=== PATIENT | male | born 1995 | race Caucasian/White ===

== ENCOUNTER 2018-07-19 14:48 | Emergency (ER) | payer SELFPAY ==
--- NOTE | 2018-07-19 15:15 | ED.PDOC ---
History of Present Illness - General Chief Complaint: GI Problem Stated Complaint: n/v, burning Time Seen by Provider: 07/19/18 15:11 Information Source: patient, family Exam Limitations: no limitations - History of Present Illness Initial Comments: FEVER, VOMITING, MUSCLE ACHES, MALAISE, COUGH AND SORE THROAT, ONSET YESTERDAY. Abdominal Pain Onset Location: epigastric Pain Radiation: no radiation Quality: moderate Timing/Duration: days - TWO DAYS Improving Factors: nothing Worsening Factors: nothing Associated Symptoms: fever/chills, headache Review of Systems - Review of Systems Constitutional: States: no symptoms reported, fever, malaise, weakness EENTM: States: throat pain Respiratory: States: cough, short of breath Cardiology: States: no symptoms reported Gastrointestinal/Abdominal: States: abdominal pain, nausea, vomiting Musculoskeletal: States: muscle pain Skin: States: no symptoms reported Neurological: States: no symptoms reported Endocrine: States: no symptoms reported Hematologic/Lymphatic: States: no symptoms reported Past Medical History (General) - Patient Medical History Hx Stroke: No Hx Congestive Heart Failure: No Hx Pacemaker: No Hx Diabetes: No Surgical History: other - Vaccination History Hx Tetanus, Diphtheria Vaccination: Yes Hx Influenza Vaccination: No Hx Pneumococcal Vaccination: No Family Medical History - Family History Mother Family History: No Known Physical Exam - Physical Exam General Appearance: Alert, No apparent distress, Well Developed, Well Groomed, Well Hydrated, Well Nourished Eyes, Ears, Nose, Throat Exam: PERRL/EOMI, normal ENT inspection, pharynx normal Neck: non-tender, full range of motion, supple Respiratory: chest non-tender, lungs clear, normal breath sounds, no respiratory distress, no accessory muscle use Cardiovascular/Chest: normal peripheral pulses, regular rate, rhythm, no edema, no gallop, no JVD, no murmur Gastrointestinal/Abdominal: normal bowel sounds, non tender, soft, no organomegaly, no pulsatile mass Extremity: normal range of motion, non-tender, normal inspection 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 tested, oriented x 3 Progress - Results/Orders Results/Orders: Laboratory Results - last 24 hr 07/19/18 07/19/18 07/19/18 15:30 15:30 15:36 WBC 12.9 H RBC 5.68 Hgb 16.7 Hct 50.4 MCV 88.9 MCH 29.4 MCHC 33.1 RDW 13.3 Plt Count 327 MPV 7.5 Absolute Neuts (auto) 11.10 H Absolute Lymphs (auto) 0.70 L Absolute Monos (auto) 0.80 Absolute Eos (auto) 0.30 Absolute Basos (auto) 0.00 Neutrophils % 85.8 H Lymphocytes % 5.8 L Monocytes % 6.1 Eosinophils % 2.1 Basophils % 0.2 Sodium 137 Potassium 4.3 Chloride 101 Carbon Dioxide 29 Anion Gap 11.3 L BUN 11 Creatinine 0.92 BUN/Creatinine Ratio 12.0 Random Glucose 102 Serum Osmolality 273.4 L Calcium 9.1 Total Bilirubin 0.9 AST 32 ALT 73 H Alkaline Phosphatase 78 Serum Total Protein 7.7 Albumin 4.1 Globulin 3.6 H Albumin/Globulin Ratio 1.1 Urine Color Yellow Urine Appearance Clear Urine pH 8.5 H Ur Specific Lando 1.020 Urine Protein Negative Urine Glucose (UA) Negative Urine Ketones Negative Urine Blood Trace-intact H Urine Nitrite Negative Urine Bilirubin Negative Urine Urobilinogen 1.0 Ur Leukocyte Esterase Negative Urine RBC 0-1 Urine WBC 0 Ur Epithelial Cells 0-1 Urine Bacteria 0 Departure - Departure Clinical Impression: Acute febrile illness Time of Disposition: 16:33 Disposition: Discharge to Home or Self Care Condition: Good Departure Forms: ED Discharge - Pt. Copy, Patient Portal Self Enrollment Diet: resume usual diet
--- NOTE | 2018-07-19 15:40 | RAD ---
EXAM DESCRIPTION: Chest,1 View CLINICAL HISTORY: 23 years Male, FEVER AND COUGH COMPARISON: None available. TECHNIQUE: AP radiograph of the chest was obtained. FINDINGS: Trachea is midline.The cardiomediastinal silhouette is normal in size. The pulmonary vasculature is within normal limits.The lungs are clear with no acute consolidation.No evidence of pleural effusions. IMPRESSION: No acute cardiopulmonary process. Electronically signed by: Becky Young MD 07/19/2018 3:38 PM [facility] [[email or web address]]
[2018-07-19 16:49] VITALS: BP 135/81; TEMP 100; O2SAT 95
== END 2018-07-19 16:45 | disposition home or self-care (01) ==
LOC: ER 14:48
DX: R50.9 Fever, unspecified (principal); R11.2 Nausea with vomiting, unspecified